=== PATIENT | female | born 1950 | race Caucasian/White ===

== ENCOUNTER 2018-01-20 07:14 | Inpatient (IN) | payer OTHER ==
[2018-01-02 13:13] VITALS: BMI 26.2
[2018-01-20] MEDS ORDERED: VANCOMYCIN 1,000 MG VIAL (RESTRICTED TO ID ONLY) ONE (07:46)
[2018-01-20] MEDS ORDERED: ceFAZolin SODIUM 1 GM VIAL ONE ×2 (07:46→08:42)
[2018-01-20] MEDS ORDERED: MIDAZOLAM HCL 2 MG/2 ML SINGLE DOSE VIAL ONE ×2 (08:10→08:16)
[2018-01-20] MEDS ORDERED: BUPIVACAINE LIPOSOME/PF (EXPAREL) 266 MG/20 ML VIAL ONE (08:16)
[2018-01-20] MEDS ORDERED: BUPIVACAINE HCL/PF (5 MG/ML) 30 ML VIAL IJ ONE (08:16)
[2018-01-20] MEDS ORDERED: PROPOFOL 20 ML ONE ×4 (08:41→11:38)
[2018-01-20] MEDS ORDERED: TRANEXAMIC ACID 1000 MG/10 ML VIAL ONE (08:42)
[2018-01-20] MEDS ORDERED: ROPIVICAINE 0.2%/MORPH PF/KETOROLAC - 51ML DISP.SYRINGE IA ONE ×2 (09:07→12:07)
[2018-01-20] MEDS ORDERED: VANCOMYCIN 1,000 MG VIAL (RESTRICTED TO ID ONLY) IVPB ONE (12:13)
[2018-01-20] MEDS ORDERED: ONDANSETRON 4 MG/2 ML VIAL IVPUSH PRN ×2 (12:44→13:17)
[2018-01-20] MEDS ORDERED: oxyCODONE HCL 5 MG TABLET PO PRN (12:44)
[2018-01-20] MEDS ORDERED: MAG HYDROX/AL HYDROX/SIMETH 30 ML UNIT-DOSE CUP PO PRN (13:17)
[2018-01-20] MEDS ORDERED: ACETAMINOPHEN INJECTION 100 ML IVPB ONE (13:28)
[2018-01-20] MEDS ORDERED: LACTATED RINGERS SOLUTION 1,000 ML IV SCH (13:30)
[2018-01-20] MEDS: ACETAMINOPHEN 1000 MG/100 ML VIAL (NON FORMULARY) IVPB SCH ×2 (13:35→18:05)
--- NOTE | 2018-01-20 13:37 | OP ---
Operative Note - Note: Operative Date: 01/20/18 Pre-Operative Diagnosis: right knee osteoarthritis Operation: Right total knee Makoplasty Post-Operative Diagnosis: Same as Pre-op Surgeon: Riki Noonan [employer]: Poornima Stock Anesthesiologist/DIRECT ENTRY MIDWIFE: Savannah Grimm Anesthesia: Spinal, Local (block) Specimens Removed: distal femur, proximal Tibia Estimated Blood Loss (mls): 50 Fluid Volume Replaced (mls): 1,500 Operative Report Dictated: Yes
--- NOTE | 2018-01-20 13:38 | SURG ---
Surgery Hand Compositor Note Hand Compositor: Poornima Stock PA-C Date of Service: 01/20/18 Diagnosis: right knee osteoarthritis Procedure: Right knee total Makoplasty I was present for the entirety of the operative procedure. For further detail, please refer to operative report. Visit type - Case Type Case Type: Scheduled - Emergency Emergency Visit: No - New patient This patient is new to me today: Yes Date on this admission: 01/20/18
--- NOTE | 2018-01-20 14:32 | PN ---
Physical Exam: SUBJECTIVE: Patient seen and examined, The patient rested comfortably in bed denies any pain able to mo of the right lower extremity without any difficulty OBJECTIVE: Is a 67-year-old female with a past history of hypertension, hyperlipidemia, diabetes mellitus,depression, osteoarthritis, IBS, left breast CA. Patient was admitted to the medical surgical unit after a elective right total knee replacement, spinal anesthesia Dr. Brand Vital Signs Period Temp Pulse Resp BP Sys/Burnette Pulse Ox Last 24 Hr 98.2 F-98.2 F 65-76 15-17 123-145/78-81 96-100 GENERAL: The patient is awake, alert, and fully oriented, in no acute distress. HEAD: Normal with no signs of trauma. EYES: PERRL, extraocular movements intact, sclera anicteric, conjunctiva clear. No ptosis. ENT: Ears normal, nares patent, oropharynx clear without exudates, moist mucous membranes. NECK: Trachea midline, full range of motion, supple. LUNGS: Breath sounds equal, clear to auscultation bilaterally, no wheezes, no crackles, no accessory muscle use. HEART: Regular rate and rhythm, S1, S2 without murmur, rub or gallop. ABDOMEN: Soft, nontender, nondistended, normoactive bowel sounds, no guarding, no rebound, no hepatosplenomegaly, no masses. EXTREMITIES: 2+ pulses, warm, well-perfused, no edema. rIGHT LOWER EXTREMITY: Dressing CDI less than 3 second capillary refill +3 pedal pulse SCDs/JESSICA NEUROLOGICAL: Cranial nerves II through XII grossly intact. Normal speech, gait not observed. PSYCH: Normal mood, normal affect. SKIN: Warm, dry, normal turgor, no rashes or lesions noted Laboratory Results - last 24 hr 01/20/18 01/20/18 08:04 13:33 POC Glucometer 142 94 Active Medications Generic Name Dose Route Start Last Admin Trade Name Freq PRN Reason Stop Dose Admin Acetaminophen 1,000 mg 01/20/18 12:45 Ofirmev Injection - IVPB Q6H ROSHAN Al Hydroxide/Mg Hydroxide 30 ml 01/20/18 13:17 Mylanta Oral Suspension - PO Q4H PRN DYSPEPSIA Aspirin 325 mg 01/21/18 10:00 Asa - PO BID ROSHAN Celecoxib 200 mg 01/21/18 10:00 Celebrex - PO BID ROSHAN Ferrous Sulfate 325 mg 01/21/18 10:00 Feosol - PO DAILY ROSHAN Lactated Ringer's 1,000 mls @ 75 mls/hr 01/20/18 12:45 Lactated Ringers Solution IV ASDIR ROSHAN Cefazolin Sodium 1 gm in 50 mls @ 100 mls/hr 01/20/18 21:00 Ancef 1 Gm Premixed Ivpb - IVPB 01/21/18 02:29 Q8H-IV ROSHAN Lactated Ringer's 1,000 mls @ 125 mls/hr 01/20/18 13:30 Lactated Ringers Solution IV 01/21/18 06:00 ASDIR COUNTS INCLUDE 234 BEDS AT THE [facility] Insulin Aspart 1 vial 01/20/18 16:30 Novolog Vial Sliding Scale - SQ TIDAC ROSHAN Protocol Losartan Potassium 25 mg 01/20/18 22:00 Cozaar - PO HS COUNTS INCLUDE 234 BEDS AT THE [facility] Metoprolol Succinate 50 mg 01/20/18 22:00 Toprol Xl - PO HS COUNTS INCLUDE 234 BEDS AT THE [facility] Multivitamins/Minerals/Vitamin C 1 tab 01/21/18 10:00 Tab-A-Vit - PO DAILY COUNTS INCLUDE 234 BEDS AT THE [facility] Non-Formulary Medication 1 tab 01/20/18 22:00 Sitagliptin Phos/Metformin Hcl [Janumet Xr 100-1,000 Mg Tablet] PO HS ROSHAN Ondansetron HCl 4 mg 01/20/18 12:44 Zofran Injection IVPUSH Q6H PRN NAUSEA AND/OR VOMITING Ondansetron HCl 4 mg 01/20/18 13:17 Zofran Injection IVPUSH Q6H PRN NAUSEA Oxycodone HCl 5 mg 01/20/18 12:44 Roxicodone - PO 01/21/18 12:43 Q3H PRN PAIN LEVEL 1-5 Oxycodone HCl 10 mg 01/20/18 12:44 Roxicodone - PO 01/21/18 12:43 Q3H PRN PAIN LEVEL 6-10 Oxycodone HCl 10 mg 01/20/18 22:00 Oxycontin - PO 01/21/18 21:59 BID COUNTS INCLUDE 234 BEDS AT THE [facility] Pantoprazole Sodium 40 mg 01/21/18 10:00 Protonix - PO DAILY COUNTS INCLUDE 234 BEDS AT THE [facility] Senna/Docusate Sodium 1 tablet 01/20/18 22:00 Pericolace - PO BID COUNTS INCLUDE 234 BEDS AT THE [facility] Trazodone HCl 25 mg 01/20/18 22:00 Desyrel - PO HS COUNTS INCLUDE 234 BEDS AT THE [facility] Venlafaxine HCl 112.5 mg 01/20/18 22:00 Effexor Xr - PO HS COUNTS INCLUDE 234 BEDS AT THE [facility] ASSESSMENT/PLAN: 1) MS Right total knee replacement postoperative day 0 - When necessary pain medication - Incentive spirometer - Physical therapy as per the orthopedist Regimen - Monitor hemoglobin baseline 13.9. On preoperative labs 2) cardiovascular Hypertension - Continue Toprol and losartan 3) Psych Depression - Continue Effexor and trazodone, Home doses 4) endo DM - fingerstics before meals and at bedtime with regular insulin sliding scale, continue janumet f/e/n - diabetic/low sodium diet - replete electrolytes when necessary PPX - ASA - physical therapy - scd/jessica - incentive spiromter dispo: pt requires inpatient admission Visit type - Emergency Visit Emergency Visit: No - New Patient This patient is new to me today: Yes Date on this admission: 01/20/18 - Critical Care Critical Care patient: No - Discharge Referral Referred to [facility] Med [facility]C.: No
[2018-01-20] MEDS: oxyCODONE HCL 5 MG TABLET PO PRN ×2 (17:17→21:24)
[2018-01-20] MEDS: INSULIN SLIDING SCALE (NOVOLOG) 1 VIAL SQ SCH (17:17)
[2018-01-20] MEDS: LACTATED RINGERS SOLUTION 1,000 ML IV SCH (17:18)
--- NOTE | 2018-01-20 17:53 | OP ---
DATE OF OPERATION: 01/20/2018 PREOPERATIVE DIAGNOSIS: Right knee osteoarthritis. POSTOPERATIVE DIAGNOSIS: Right knee osteoarthritis. OPERATION PERFORMED: Right total knee arthroplasty with VIJAY furniture removalist's assistant. SURGEON: Riki Noonan MD COLLEGE DEAN: Poornima. TYPE OF ANESTHESIA: Spinal and block. DISPOSITION: Patient returned to the recovery room in stable condition. COMPONENTS USED: Miriam Triathlon size 3 right posterior-stabilized femur, size 3 universal tibia, an 11-mm posterior-stabilized articular insert, and 29-mm patella button. ESTIMATED BLOOD LOSS: Less than 50 mL. TOTAL TOURNIQUET TIME: 86 minutes. PREOPERATIVE RANGE OF MOTION: -5 to 135 degrees with a laterally tracking patella. FINDINGS: Severe end-stage arthritis. INDICATIONS: The patient failed nonoperative treatment for right knee arthritis and was indicated for right total knee replacement. Preoperatively in the waiting area as well as in the office, I had a long discussion with the patient regarding the plan, the expected outcome, and the risks, benefits, and alternatives of surgery. The risks include, but are not limited to, infection which may require future surgery and removal of implants, bleeding which may require transfusion, damage to nerves, arteries, veins, tendons, muscles, and other adjacent structures leading to possible numbness, weakness, decreased function, and/or possible need for surgical repair. Also discussed was the possibility of intraoperative and postoperative fractures, implant loosening, stiffness, need for extensive therapy, and need for revision for a variety of reasons. We also discussed blood clots and other possible medical complications. This was discussed at length, and consent was obtained. PROCEDURE IN DETAIL: Patient was taken to the operating room and placed on the operating table in the supine position. Following induction of spinal anesthesia, a well-padded tourniquet was placed high on the right thigh, and the right lower extremity was prepped and draped in a sterile fashion. A timeout was performed. I confirmed the correct side, verified that the site was marked, and confirmed the correct patient and procedure to be performed as well as that we had the correct patient in the computer and that the patient received the appropriate preoperative antibiotics and tranexamic acid and adequate compression device on the nonoperative leg. We then placed our tibial and femoral arrays through stab incisions and blunt dissection. The hip center and malleoli were registered. We then elevated the tourniquet, and a midline incision followed by a medial parapatellar arthrotomy was performed. Checkpoints placed, femur and tibia registered, knee balanced, osteophytes removed prior. All bone cuts were then made in accordance with our plan, while protecting the surrounding soft tissues. A laminar animal husbandry professor was placed sequentially in the lateral and medial joint spaces. Posterior aspect of the cruciate ligaments and menisci were all excised. A spacer block was placed, and we had neutral alignment in full extension and well balanced with regards to varus and valgus stress. A tibial trial was applied and placed in the appropriate external rotation. A femoral finishing trial was applied. The box was cut. We then placed a femoral trial and tried with an 11-mm polyethylene. There was good stability, range of motion, patellar tracking, and soft tissue tension. The patella was then measured at 21 mm and was cut down to 13 mm using the guide. We then reconstructed with a 29-mm button and performed a lateral double cut with the patella trial in place. The patella tracked centrally. There was good stability, range of motion, and soft tissue tension. The tibial trial was then punched in the appropriate external rotation. Trials were removed. After a 3-minute soak with a diluted Betadine solution, the wound was copiously irrigated. Sequential cementation was performed starting with the tibia and then the femur. Excess cement was removed. We put a trial polyethylene in and cemented the patella. The knee was copiously irrigated. The joint cocktail was injected. Once all the cement was hardened, knee was well balanced. The knee had full extension. It flexed to 135 degrees and was well balanced in flexion and extension. The trial was removed. We checked for remaining cement. We then inserted the final polyethylene, and it seated flush. The knee was once again checked and well balanced and had full range of motion. The patella tracked centrally. The knee was copiously irrigated. We closed the arthrotomy with 0 Vicryl and 0 V-Loc. With the arthrotomy closed, there was good stability, soft tissue tension, range of motion, and the patella tracked centrally. The checkpoints were removed prior to closure of the capsule, and a gram of vancomycin powder was placed in the wound. The arrays were removed and irrigated, and 2-0 Vicryl and anant were used for the skin. A dry, sterile compressive dressing was placed, and the patient was transferred to the recovery room in stable condition. She will be mobilized weightbearing as tolerated. WOUND CLASSIFICATION: Clean. COMPLICATIONS: None. SPECIMENS: Bone. [place] TAVARES/[id number]
[2018-01-20] MEDS ORDERED: PT OWN MED DRAWER 7, Y5N ONE (21:15)
[2018-01-20] MEDS: LOSARTAN POTASSIUM 25 MG TABLET PO SCH (21:22)
[2018-01-20] MEDS: CEFAZOLIN 1 GM/D5W 1 GM/50 ML BAG IVPB SCH (21:22)
[2018-01-20] MEDS: traZODone HCL 50 MG TABLET (FP) PO SCH (21:23)
[2018-01-20] MEDS: oxyCODONE HCL 10 MG SUSTAINED ACTING TABLET PO SCH (21:23)
[2018-01-20] MEDS: SENNOSIDES/DOCUSATE COMBO (SENNA PLUS) TABLET (UD) PO SCH (21:24)
[2018-01-20] MEDS ORDERED: PATIENT'S OWN MEDICATION (NON-FORMULARY) (Sitagliptin Phos/Metformin Hcl [Janumet Xr 100-1 PO SCH (22:00)
[2018-01-20] MEDS ORDERED: sitaGLIPtin PHOSPHATE 100 MG TABLET (FP) PO SCH (22:00)
[2018-01-20] MEDS: VENLAFAXINE HCL 37.5 MG E.R. CAPSULE (FP) PO SCH (23:30)
[2018-01-21] MEDS ORDERED: ACETAMINOPHEN INJECTION 100 ML IVPB ONE (00:02)
[2018-01-21] MEDS: ACETAMINOPHEN 1000 MG/100 ML VIAL (NON FORMULARY) IVPB SCH ×4 (00:03→17:45)
[2018-01-21] MEDS: CEFAZOLIN 1 GM/D5W 1 GM/50 ML BAG IVPB SCH (02:55)
[2018-01-21] MEDS: oxyCODONE HCL 5 MG TABLET PO PRN ×4 (03:36→20:45)
[2018-01-21] MEDS ORDERED: INSULIN (NOVOLOG) ASPART 100 UNITS/ML 10ML VIAL ONE (06:49)
[2018-01-21] MEDS: INSULIN SLIDING SCALE (NOVOLOG) 1 VIAL SQ SCH ×3 (06:51→16:31)
[2018-01-21 08:55] LABS: ANION GAP 6 (8-16); BLOOD UREA NITROGEN 15 mg/dl (7-18); CALCIUM 8.4 mg/dl (8.4-10.2); CHLORIDE 100 mmol/L (98-107); CO2 27 mmol/L (22-28); CREATININE 0.6 mg/dl (0.6-1.3); GLUCOSE,RANDOM 151 mg/dl (74-106); POTASSIUM 4.2 mmol/L (3.5-5.1); SODIUM 133 mmol/L (136-145)
[2018-01-21 09:14] LABS: HEMATOCRIT 33.6 % (32.4-45.2); HEMOGLOBIN 11.9 GM/dl (10.7-15.3); MCH 30.1 pg (25.7-33.7); MCHC 35.4 g/dl (32.0-36.0); MEAN CELL VOLUME 85.2 fl (80-96); MEAN PLT VOLUME 8.8 fl (7.5-11.1); PLATELET COUNT 201 K/MM3 (134-434); RBC 3.94 M/mm3 (3.60-5.2); RDW 12.6 % (11.6-15.6); WHITE BLOOD COUNT 8.2 K/mm3 (4.0-10.8)
--- NOTE | 2018-01-21 09:19 | PN ---
Progress Note (short form) - Note Progress Note: See and examined. No complaints vitals stable NAD A and O x3 RLE: dressing intact compartments soft nvid A/P: POD#1 s/p R TKA -pt/ot/oob -pain control -asa and mech for vte proph -if remains stable and clears pt, dc today otherwise likely tomorrow to home w vns
[2018-01-21] MEDS: FERROUS SO4 325 MG TABLET (FP) PO SCH (09:42)
[2018-01-21] MEDS: MULTIVITAMINS (DAILY MVI) TABLET (FP) PO SCH (09:42)
[2018-01-21] MEDS: CELECOXIB 200 MG CAPSULE PO SCH ×2 (09:43→22:39)
[2018-01-21] MEDS: SENNOSIDES/DOCUSATE COMBO (SENNA PLUS) TABLET (UD) PO SCH ×2 (09:43→22:43)
[2018-01-21] MEDS: oxyCODONE HCL 10 MG SUSTAINED ACTING TABLET PO SCH (09:43)
[2018-01-21] MEDS: ASPIRIN 325 MG TABLET PO SCH ×2 (09:43→22:37)
[2018-01-21] MEDS: PANTOPRAZOLE 40 MG TABLET (FP) PO SCH (09:43)
[2018-01-21] MEDS: LACTATED RINGERS SOLUTION 1,000 ML IV SCH (12:57)
--- NOTE | 2018-01-21 19:35 | PN ---
Physical Exam: SUBJECTIVE: Patient seen and examined. Denies pain. OBJECTIVE: Vital Signs Period Temp Pulse Resp BP Sys/Burnette Pulse Ox Last 24 Hr 98.0 F-98.9 F 71-88 18-20 119-139/60-67 95-96 GENERAL: The patient is awake, alert, and fully oriented, in no acute distress. LUNGS: Breath sounds equal, clear to auscultation bilaterally, no wheezes, no crackles, no accessory muscle use. HEART: Regular rate and rhythm, S1, S2 ABDOMEN: Soft, nontender, nondistended RLE: Surgical dressing, JULIANNE, SCD in place; foot 2+ pulses, warm, well perfused, 5/5 motor and sensory NEUROLOGICAL: Cranial nerves II through XII grossly intact. Normal speech Laboratory Results - last 24 hr 01/21/18 01/21/18 01/21/18 06:41 07:40 07:40 WBC 8.2 RBC 3.94 Hgb 11.9 Hct 33.6 D MCV 85.2 MCH 30.1 MCHC 35.4 RDW 12.6 Plt Count 201 MPV 8.8 Sodium 133 L Potassium 4.2 Chloride 100 Carbon Dioxide 27 Anion Gap 6 L BUN 15 Creatinine 0.6 Creat Clearance w eGFR > 60 POC Glucometer 160 Random Glucose 151 H D Calcium 8.4 01/21/18 01/21/18 11:26 16:25 WBC RBC Hgb Hct MCV MCH MCHC RDW Plt Count MPV Sodium Potassium Chloride Carbon Dioxide Anion Gap BUN Creatinine Creat Clearance w eGFR POC Glucometer 171 147 Random Glucose Calcium Active Medications Generic Name Dose Route Start Last Admin Trade Name Freq PRN Reason Stop Dose Admin Acetaminophen 1,000 mg 01/20/18 12:45 01/21/18 17:45 Ofirmev Injection - IVPB 1,000 mg Q6H ROSHAN Administration Al Hydroxide/Mg Hydroxide 30 ml 01/20/18 13:17 Mylanta Oral Suspension - PO Q4H PRN DYSPEPSIA Aspirin 325 mg 01/21/18 10:00 01/21/18 09:43 Asa - PO 325 mg BID ROSHAN Administration Celecoxib 200 mg 01/21/18 10:00 01/21/18 09:43 Celebrex - PO 200 mg BID ROSHAN Administration Ferrous Sulfate 325 mg 01/21/18 10:00 01/21/18 09:42 Feosol - PO 325 mg DAILY ROSHAN Administration Lactated Ringer's 1,000 mls @ 75 mls/hr 01/20/18 12:45 01/21/18 12:57 Lactated Ringers Solution IV Not Given ASDIR ROSHAN Insulin Aspart 1 vial 01/20/18 16:30 01/21/18 16:31 Novolog Vial Sliding Scale - SQ Not Given TIDAC [facility] Protocol Losartan Potassium 25 mg 01/20/18 22:00 01/20/18 21:22 Cozaar - PO 25 mg HS ROSHAN Administration Metoprolol Succinate 50 mg 01/20/18 22:00 01/20/18 21:24 Toprol Xl - PO 50 mg HS ROSHAN Administration Multivitamins/Minerals/Vitamin C 1 tab 01/21/18 10:00 01/21/18 09:42 Tab-A-Vit - PO 1 tab DAILY ROSHAN Administration Non-Formulary Medication 1 tab 01/20/18 22:00 Sitagliptin Phos/Metformin Hcl [Janumet Xr 100-1,000 Mg Tablet] PO HS ROSHAN Ondansetron HCl 4 mg 01/20/18 12:44 Zofran Injection IVPUSH Q6H PRN NAUSEA AND/OR VOMITING Ondansetron HCl 4 mg 01/20/18 13:17 Zofran Injection IVPUSH Q6H PRN NAUSEA Oxycodone HCl 10 mg 01/20/18 22:00 01/21/18 09:43 Oxycontin - PO 01/21/18 21:59 10 mg BID ROSHAN Administration Pantoprazole Sodium 40 mg 01/21/18 10:00 01/21/18 09:43 Protonix - PO 40 mg DAILY ROSHAN Administration Senna/Docusate Sodium 1 tablet 01/20/18 22:00 01/21/18 09:43 Pericolace - PO 1 tablet BID ROSHAN Administration Trazodone HCl 25 mg 01/20/18 22:00 01/20/18 21:23 Desyrel - PO 25 mg HS ROSHAN Administration Venlafaxine HCl 112.5 mg 01/20/18 22:00 01/20/18 23:30 Effexor Xr - PO 112.5 mg HS ROSHAN Administration ASSESSMENT/PLAN Right total knee replacement --POD #1 --walked 150 feet with PT --pain well-managed with PO meds NIDDM --restart sitagliptin/metformin --Novolog sliding scale coverage DVT prophylaxis: SCDs, TEDs, ASA 325mg BID Visit type - Emergency Visit Emergency Visit: Yes ED Registration Date: 01/20/18 Care time: The patient presented to the Emergency Department on the above date and was hospitalized for further evaluation of their emergent condition. - New Patient This patient is new to me today: Yes Date on this admission: 01/22/18 - Critical Care Critical Care patient: No
[2018-01-21] MEDS ORDERED: oxyCODONE HCL 5 MG TABLET PO PRN (20:30)
[2018-01-21] MEDS ORDERED: metFORMIN HCL 500 MG TABLET (FP) PO SCH (22:00)
[2018-01-21] MEDS ORDERED: DOCUSATE SODIUM 100 MG CAPSULE (FP) PO SCH (22:00)
[2018-01-21] MEDS ORDERED: sitaGLIPtin PHOSPHATE 100 MG TABLET (FP) PO SCH (22:00)
[2018-01-21] MEDS: traZODone HCL 50 MG TABLET (FP) PO SCH (22:36)
[2018-01-21] MEDS: LOSARTAN POTASSIUM 25 MG TABLET PO SCH (22:37)
[2018-01-21] MEDS: POLYETHYLENE GLYCOL 3350 119 GM BTL PO SCH (22:43)
[2018-01-21] MEDS: VENLAFAXINE HCL 37.5 MG E.R. CAPSULE (FP) PO SCH (22:48)
[2018-01-22] MEDS: ACETAMINOPHEN 1000 MG/100 ML VIAL (NON FORMULARY) IVPB SCH ×2 (00:23→06:30)
[2018-01-22] MEDS: oxyCODONE HCL 5 MG TABLET PO PRN ×2 (00:23→09:54)
[2018-01-22] MEDS: INSULIN SLIDING SCALE (NOVOLOG) 1 VIAL SQ SCH (06:31)
[2018-01-22 06:59] VITALS: TEMP 98.5
[2018-01-22] MEDS ORDERED: sitaGLIPtin PHOSPHATE 100 MG TABLET (FP) PO SCH (07:00)
--- NOTE | 2018-01-22 08:45 | PN ---
Progress Note (short form) - Note Progress Note: No complaints vitals stable nad a and o x3 dressing dry nvid compartments soft A/P: POD#2 sp R TKA -cont pt ot oob wbat -if remains stable and labs stable and clears pt then home today w vns -reviewed dc instructions w patient
[2018-01-22 09:15] LABS: ALBUMIN 3.4 g/dl (3.5-5.0); ALK PHOS 49 U/L (32-92); ANION GAP 9 (8-16); BILIRUBIN,TOTAL 0.9 mg/dl (0.2-1.0); BLOOD UREA NITROGEN 11 mg/dl (7-18); CALCIUM 8.8 mg/dl (8.4-10.2); CHLORIDE 101 mmol/L (98-107); CO2 26 mmol/L (22-28); CREATININE 0.4 mg/dl (0.6-1.3); GLUCOSE,RANDOM 127 mg/dl (74-106); MAGNESIUM 1.7 mg/dL (1.8-2.4); POTASSIUM 4.3 mmol/L (3.5-5.1); SGOT/AST 28 U/L (10-42); SGPT/ALT 33 U/L (10-40); SODIUM 136 mmol/L (136-145); TOT PROT 6.4 g/dl (6.4-8.3)
[2018-01-22 09:20] LABS: HEMOGLOBIN 11.4 GM/dl (10.7-15.3); MCH 29.9 pg (25.7-33.7); MCHC 34.6 g/dl (32.0-36.0); MEAN CELL VOLUME 86.3 fl (80-96); MEAN PLT VOLUME 8.6 fl (7.5-11.1); PLATELET COUNT 191 K/MM3 (134-434); RBC 3.82 M/mm3 (3.60-5.2); RDW 12.5 % (11.6-15.6); WHITE BLOOD COUNT 9.3 K/mm3 (4.0-10.8)
[2018-01-22 09:22] VITALS: BP 105/58; PULSE 75
[2018-01-22] MEDS: FERROUS SO4 325 MG TABLET (FP) PO SCH (09:27)
[2018-01-22] MEDS: POLYETHYLENE GLYCOL 3350 119 GM BTL PO SCH (09:27)
[2018-01-22] MEDS: MULTIVITAMINS (DAILY MVI) TABLET (FP) PO SCH (09:27)
[2018-01-22] MEDS: PANTOPRAZOLE 40 MG TABLET (FP) PO SCH (09:27)
[2018-01-22] MEDS: ASPIRIN 325 MG TABLET PO SCH (09:27)
[2018-01-22] MEDS: CELECOXIB 200 MG CAPSULE PO SCH (09:27)
[2018-01-22] MEDS: SENNOSIDES/DOCUSATE COMBO (SENNA PLUS) TABLET (UD) PO SCH (09:27)
--- NOTE | 2018-01-22 12:41 | DS ---
Physical Exam: SUBJECTIVE: Patient seen and examined,reports feeling better, Rt knee pain,well controlled. OBJECTIVE: Vital Signs Period Temp Pulse Resp BP Sys/Burnette Pulse Ox Last 24 Hr 98.4 F-98.9 F 75-90 17-20 99-139/57-67 95-97 PHYSICAL EXAM GENERAL: The patient is awake, alert, and fully oriented, in no acute distress. HEAD: Normal with no signs of trauma. EYES: PERRL, extraocular movements intact, sclera anicteric, conjunctiva clear. ENT: Ears normal, nares patent, oropharynx clear without exudates, moist mucous membranes. NECK: Trachea midline, full range of motion, supple. LUNGS: Breath sounds equal, clear to auscultation bilaterally, no wheezes, no crackles, no accessory muscle use. HEART: Regular rate and rhythm, S1, S2 without murmur, rub or gallop. ABDOMEN: Soft, nontender, nondistended, normoactive bowel sounds, no guarding, no rebound, no hepatosplenomegaly, no masses. EXTREMITIES:Rt knee dsg dry and intact, 2+ pulses, warm, well-perfused, no edema. NEUROLOGICAL: Cranial nerves II through XII grossly intact. Normal speech, gait not observed. PSYCH: Normal mood, normal affect. SKIN: Warm, dry, normal turgor, no rashes or lesions noted. LABS Laboratory Results - last 24 hr 01/21/18 01/21/18 01/22/18 16:25 22:42 06:19 WBC RBC Hgb Hct MCV MCH MCHC RDW Plt Count MPV Sodium Potassium Chloride Carbon Dioxide Anion Gap BUN Creatinine Creat Clearance w eGFR POC Glucometer 147 157 112 Random Glucose Calcium Magnesium Total Bilirubin AST ALT Alkaline Phosphatase Total Protein Albumin 01/22/18 01/22/18 07:00 07:00 WBC 9.3 RBC 3.82 Hgb 11.4 Hct 33.0 MCV 86.3 MCH 29.9 MCHC 34.6 RDW 12.5 Plt Count 191 MPV 8.6 Sodium 136 Potassium 4.3 Chloride 101 Carbon Dioxide 26 Anion Gap 9 BUN 11 Creatinine 0.4 L Creat Clearance w eGFR > 60 POC Glucometer Random Glucose 127 H Calcium 8.8 Magnesium 1.7 L Total Bilirubin 0.9 AST 28 D ALT 33 D Alkaline Phosphatase 49 D Total Protein 6.4 Albumin 3.4 L HOSPITAL COURSE: Date of Admission:01/20/18 Date of Discharge: 01/22/18 This is a 67-year-old female with a past history of hypertension, hyperlipidemia, diabetes mellitus,depression, osteoarthritis, IBS, left breast CA. Patient was admitted to the medical surgical unit after a elective right total knee replacement, spinal anesthesia by Dr. Brand. Pt underwent Rt knee replacement on 01/20/18, procedure tolerated well, Rt knee dsg D& I. Pt was evaluated by PT recommend out PT. Surgery cleared for discharge. *Hypertension: BP stable, will continue home dose Toprol and losartan *Depression:Will continue Effexor and Trazodone, Home doses *DM: BS stable, will continue on home dose Janumet and advised to continue on consistent carb diet and monitor BS at home. *Osteoarthritis: Will continue on pain meds. Minutes to complete discharge: 40 Discharge Summary Reason For Visit: RIGHT KNEE OSTEOARTHRITIS Condition: Stable - Instructions Diet, Activity, Other Instructions: Diabetic low salt diet. Home Physical Therapy. Knee precautions. Watch out for bleeding from surgical site. Referrals: Riki Brand MD [Staff Physician] - 2 Weeks Mark Fink [Non Staff, Medical] - 2 Weeks Disposition: HOME - Home Medications Comprehensive Discharge Medication List: Ambulatory Orders Irbesartan [Avapro] 75 mg PO HS 01/02/18 Metoprolol Succinate [Toprol Xl] 50 mg PO HS 01/02/18 Sitagliptin Phos/Metformin HCl [Janumet Xr 100-1,000 mg Tablet] 1 tab PO HS 11/16 Trazodone HCl 25 mg PO HS 01/02/18 Venlafaxine HCl ER [Effexor Xr -] 112.5 mg PO HS 01/02/18 Aspirin [ASA -] 325 mg PO BID tablet 01/22/18 Celecoxib [CeleBREX -] 200 mg PO BID capsule 01/22/18 Docusate Sodium [Colace -] 300 mg PO HS capsule 01/22/18 Ferrous Sulfate [Feosol] 325 mg PO DAILY ud 01/22/18 Mag Hydrox/Al Hydrox/Simeth [Mylanta Oral Suspension -] 30 ml PO Q4H PRN cup Multivitamins [Multivit ([facility] Formulary)] 1 tab PO DAILY tab 01/22/18 Pantoprazole Sodium [Protonix -] 40 mg PO DAILY tablet.ec 01/22/18 Polyethylene Glycol 3350 [Miralax 119 gm Btl -] 17 gm PO BID bottle 01/22/18 Sennosides/Docusate Sodium [Pericolace -] 1 tablet PO BID tablet 01/22/18 Sitagliptin Phosphate [Januvia -] 100 mg PO DAILY@0700 ud 01/22/18 oxyCODONE HCL [Roxicodone -] 10 mg PO Q4H PRN tablet MDD 4 01/22/18 This patient is new to me today: Yes Date on this admission: 01/22/18 Emergency Visit: Yes ED Registration Date: 01/20/18 Care time: The patient presented to the Emergency Department on the above date and was hospitalized for further evaluation of their emergent condition. Critical Care patient: No - Discharge Referral Referred to [facility] No
--- NOTE | 2018-01-25 15:26 | PATH ---
Surgical Pathology Report Patient Name: KULDEEP SCHMIDT Med. Rec. #: [id number] /Age/Gender: 1950 (Age: 67) / F Account: [id number] Location: [facility]G Taken: 01/20/2018 Received: 01/20/2018 Reported: 01/25/2018 Physicians: Riki Noonan M.D. Specimen(s) Received RIGHT KNEE BONES Clinical History Right knee osteoarthritis Final Diagnosis KNEE BONE, RIGHT, TOTAL KNEE REPLACEMENT: DEGENERATIVE JOINT DISEASE. Electronically Signed Poornima Cantu M.D. Gross Description Received in formalin labeled "right knee bones," is a 12.0 x 11.0 x 2.0 cm aggregate of multiple portions of bone and soft tissue. The tibial plateau measures 7.0 x 4.9 x 1.3 cm. There multiple areas of eburnation present, measuring up to 1.7 cm in greatest dimension. The remaining articular surfaces are pérez-yellow and focally granular. The underlying trabecular bone is yellow and hard. Electrical Calibrator sections are submitted in one cassette, following decalcification. 01/23/2018 [facility]01/23/2018
== END 2018-01-22 11:23 | disposition home or self-care (01) | DRG 302 ==
LOC: FM/S 07:14
PROVIDERS: ADMIT Orthopaedic Surgery; ATTEND Nurse Practitioner Family
PROC: 8E0YXBZ Computer Assisted Procedure of Lower Extremity (ICD-10-PCS; 2018-01-20)
PROC: 0SRC0J9 Replacement of Right Knee Joint with Synthetic Substitute, Cemented, Open Approach (ICD-10-PCS; principal; 2018-01-20 10:59)
DX: M17.11 Unilateral primary osteoarthritis, right knee (principal); I10 Essential (primary) hypertension; E78.5 Hyperlipidemia, unspecified; K58.9 Irritable bowel syndrome, unspecified; F32.9 Major depressive disorder, single episode, unspecified; C50.912 Malignant neoplasm of unspecified site of left female breast; Z79.84 Long term (current) use of oral hypoglycemic drugs
CPT/HCPCS: 36415; 73560-TC-RT-FY; 80048; 80053; 82962; 83735; 85027; 88304-TC; 88311-TC; 94760; 97116-GP; 97162-GP; J0131